=== PATIENT | male | born 1940 | race Caucasian/White ===

== ENCOUNTER → 2017-01-18 | Outpatient (CLI) | payer OTHER | END | disposition home or self-care (01) | LOC: PCVCCLINIC 15:41 | PROVIDERS: ATTEND Internal Medicine Cardiovascular Disease | DX: I25.10 Atherosclerotic heart disease of native coronary artery without angina pectoris (principal); E78.00 Pure hypercholesterolemia, unspecified; I10 Essential (primary) hypertension; J44.9 Chronic obstructive pulmonary disease, unspecified; I71.4 Abdominal aortic aneurysm, without rupture; I77.1 Stricture of artery; I73.9 Peripheral vascular disease, unspecified | CPT/HCPCS: 93005; G0463 ==

== ENCOUNTER → 2017-11-08 | Outpatient (CLI) | payer OTHER | END | disposition home or self-care (01) | LOC: PCVCCLINIC 10:31 | PROVIDERS: ATTEND Internal Medicine Cardiovascular Disease | DX: I25.10 Atherosclerotic heart disease of native coronary artery without angina pectoris (principal); I10 Essential (primary) hypertension; R06.02 Shortness of breath; R60.9 Edema, unspecified; J42 Unspecified chronic bronchitis; I71.4 Abdominal aortic aneurysm, without rupture; I77.9 Disorder of arteries and arterioles, unspecified; I73.9 Peripheral vascular disease, unspecified; R94.31 Abnormal electrocardiogram [ECG] [EKG]; R53.83 Other fatigue; Z87.891 Personal history of nicotine dependence; Z79.899 Other long term (current) drug therapy; Z79.82 Long term (current) use of aspirin | CPT/HCPCS: 80061; 93005; G0463 ==

== ENCOUNTER → 2017-11-14 | Outpatient (CLI) | payer OTHER ==
--- NOTE | 2017-11-09 14:07 | PCVCIMAG ---
APPROVED REPORT Study performed: 11/08/2017 10:47:31 EXAM: Comprehensive 2D, Doppler, and color-flow Echocardiogram Room #: 3 BSA: 2.15 HR: 61 bpmBP: 128/70 mmHg Rhythm: Junctional Other Information Study Quality: Adequate Risk Factors: Cardiac Risk Factors: HTN Indications Dyspnea CAD Fatigue Hypertension/HDD S/P stents x 6 2D Dimensions IVSd: 9.26 (7-11mm)LVOT Diam: 23.94 (18-24mm) LVDd: 45.18 mm PWd: 7.52 (7-11mm)Ascending Ao: 29.76 (22-36mm) LVDs: 23.67 (25-40mm) Left Atrium: 33.05 (27-40mm) Aortic Root: 20.88 mm LV Single Plane 4CH: 68.42 % LV Single Plane 2CH: 71.07 %Nazario's LVEF: 69.75 % Biplane EF: 69.0 % Volumes Left Atrial Volume (Systole) Single Plane 4CH: 76.24 mLSingle Plane 2CH: 60.17 mL Biplane LA Volume: 73.00 mLLA ESV Index: 34.00 mL/m2 Aortic Valve AoV Peak Carlos.: 1.56 m/s AO Peak Gr.: 9.71 mmHgLVOT Max P.01 mmHg LVOT Max V: 1.23 m/s MARIAM Vmax: 3.54 cm2 Mitral Valve E/A Ratio: 0.7 MV Decel. Time: 180.75 ms MV E Max Carlos.: 0.56 m/s MV A Carlos.: 0.80 m/s MV PHT: 52.42 ms IVRT: 89.97 ms TDI E/Lateral E': 8.00E/Medial E': 9.33 Medial E' Carlos.: 0.06 m/s Lateral E' Carlos.: 0.07 m/s Pulmonary Valve PV Peak Gr.: 5.35 mmHg Tricuspid Valve TR Peak Carlos.: 1.16 m/s TR Peak Gr.: 5.41 mmHg TV Vmax: 0.52 m/sPA Pressure: 13.00 mmHg Left Ventricle The left ventricle is normal size. There is normal LV segmental wall motion. There is normal left ventricular wall thickness. Left ventricular systolic function is normal. The left ventricular ejection fraction is within the normal range. LVEF is 65-70%. Grade I - abnormal relaxation pattern. Right Ventricle The right ventricle is normal size. The right ventricular systolic function is normal. Atria Left atrium is at the upper limits of normal. The right atrium size is normal. Aortic Valve The aortic valve is normal in structure. No aortic regurgitation is present. There is no aortic valvular stenosis. Mitral Valve The mitral valve is normal in structure. There is no mitral valve regurgitation noted. No evidence of mitral valve stenosis. Tricuspid Valve The tricuspid valve is normal in structure. Trace tricuspid regurgitation with a PA pressure of 13 mmHg. No pulmonary hypertension. Pulmonic Valve The pulmonary valve is normal in structure. Mild pulmonic regurgitation. Great Vessels The aortic root is normal in size. The ascending aorta is normal in size. IVC is normal in size and collapses with >50% inspiration Pericardium There is no pericardial effusion. There is no pleural effusion. <Conclusion> The left ventricle is normal size. There is normal left ventricular wall thickness. LVEF is 65-70%. Grade I - abnormal relaxation pattern. The right ventricle is normal size. Left atrium is at the upper limits of normal. The aortic valve is normal in structure. There is no mitral valve regurgitation noted. Trace tricuspid regurgitation with a PA pressure of 13 mmHg. No pulmonary hypertension. There is no pericardial effusion.
[~2017-11-14] MED LIST: DIAZEPAM 10 MG TABLET. ONE; EPINEPHrine 1 MG/ML VIAL ONE; HEPARIN for ARTERIAL LINE 1,500 ML ONE; IOHEXOL 300 MG/ML 100ML VIAL. ONE; IOHEXOL 350 MG/ML 100 ML VIAL. ONE; IV NORMAL SALINE 1000ML BAG 1,000 ML ONE; LIDOCAINE 1% Multi-Dose 20 ML VIAL. ONE; MIDAZOLAM HCL/PF 2 MG/2 ML VIAL. ONE; fentaNYL PF VIAL 100 MCG/2 ML VIAL ONE
--- NOTE | 2017-11-14 14:30 | PCVCINTER ---
EXAM: 1. AORTOGRAM AND BILATERAL LOWER EXTREMITY RUNOFF ANGIOGRAM 2. BILATERAL RENAL ANGIOGRAPHY INDICATION: Peripheral arterial disease. Coronary artery disease. Previous bilateral iliac stents. Bilateral leg pain. Hypertension. Renal atherosclerosis. PROCEDURE: Procedure and risks of angiography intervention is appropriate including limb loss stroke and were discussed with the patient's family and consent obtained. The patient's right groin was prepped abnormal sterile fashion. IV conscious sedation was used throughout procedure with appropriate monitoring from 10:45 AM through 11:45 AM. Ultrasound was used to interrogate the right groin and showed the right common femoral artery to be patent. A permanent spot film was obtained. Under ultrasound guidance access into the right common femoral artery was obtained and a 5 Spanish sheath was placed. Through this a 5 Spanish flush catheter was placed into the abdominal aorta at the level of the renal arteries and AP aortogram was performed. Catheter was positioned at the aortic bifurcation and both oblique views of the pelvis were obtained. Catheter was positioned into the right external iliac artery and right leg runoff angiography was performed. Catheter was exchanged for a visceral catheter was placed into the right renal arteries and right renal angiograms obtained. Catheter was placed into the the left renal arteries and left renal angiograms were obtained. Catheter was advanced to the level of the left external iliac artery and left leg runoff angiography was obtained.Catheters and wires removed. Dr. Sesay joined the procedure and he performed coronary angiography. Please see his separate dictation for full details. Sheath was removed and hemostasis obtained using the FISH device. No immediate complications. FINDINGS: Aortogram: There is one right and one left renal artery. Mild ectasia infrarenal abdominal aorta without significant stenosis. Pelvis: Previous right and left common iliac artery stents maintaining good patency. The right and left external iliac arteries are patent. Both internal iliac arteries are patent. The right and left common femoral and profunda femoral arteries are patent. Right renal artery: Minimal plaque proximal vessel does not cause significant stenosis. Left renal artery: Moderate irregular plaque proximal vessel causes only mild stenosis not felt to be flow-limiting. Right leg: The superficial femoral artery and popliteal arteries show good patency. Three-vessel runoff is widely patent with good flow into the foot. Left leg: The superficial femoral artery and popliteal arteries show good patency. Three-vessel runoff is widely patent with good flow into the foot. IMPRESSION: Previous bilateral common iliac artery stents maintaining good patency. Mild left renal artery stenosis less than 30%. No intrainguinal arterial stenosis seen. LOC:[id number]
--- NOTE | 2017-11-14 18:19 | PCVCINTER ---
APPROVED REPORT Patient Details Patient Status: Room #: 2 The patient is a 77 year-old Male Event Personnel Shama Kitchen MD, Luly Hernandez DO, Abdiel Reveles RN, Letty Dos Santos RT(R)(), Soo Bowers RT(R) Risk Factors Arterial HypertensionDysplipidemia (Type: 1)Obesity, Cerebrovascular DiseaseFamily HistoryPeripheral Vascular Disease, Chronic Lung DiseaseHypercholesterolemia, Last Creatanine 1.2Tobacco History (Former) Previous Procedures/Diagnoses CAD, COPD, Hypertension Procedure Narrative The patient was brought electively to the Cardiac Catheterization Laboratory and was prepped and draped in a sterile manner. The right femoral was infiltrated with 1% Lidocaine subcutaneous anesthesia. The right femoral accessed via ultrasound guidance. A Right Heart Catheterization was performed with a 7 Fr. [place]-Adelaida catheter and pressure were recorded. Cardiac outputs were obtained by the Lela and Thermal Dilution method. A 6F sheath was inserted into the right femoral artery. Coronary angiography was performed using coronary diagnostic catheters. The right coronary system was accessed and visualized with a JR4 catheter. The left coronary system was accessed and visualized with a JL4 catheter. The left ventricle was accessed and visualized with a Straight Pigtail catheter. Left ventriculogram was performed in WEAVER projection. Closure device was deployed with a 6F Fr Fish. Hemostasis was obtained with manual pressure following sheath removal without any complications. The patient tolerated the procedure well and there were no complications associated with the procedure. There was no hematoma. Hemodynamics The right atrial mean pressure is 10 mmHg. The right ventricular pressure is 15 mmHg. The pulmonary artery pressure is 36/16 mmHg with a mean of 25 mmHg. The mean pulmonary capillary wedge pressure is 21 mmHg. The aortic pressure is 132/56 mmHg with a mean of 86 mmHg. The left ventricular pressure is 120/3 mmHg with a mean of 14 mmHg. The cardiac output and index were assessed using Thermal. The cardiac output using thermo method is 5.11 L/min. The cardiac index using thermo method is 2.3 L/min/m2. Conclusion #1 normal left ventricular size and systolic function EF 60% #2 left main mild disease giving rise to LAD and circumflex #3 LAD proximal calcification extends around apex there is eccentric proximal long lesion of 50% with mild diffuse disease #4 circumflex OM with mild irregularities nondominant but moderate distribution. No occlusive disease #5 dominant right coronary with eccentric 30-40% mid vessel lesion giving rise to a PDA MEJIA diffusely diseased no occlusive disease #6 successful right heart catheterization as described above with mild pulmonary pressure elevation borderline to mild wedge pressure elevation Recommendations and plan continue aggressive risk factor modification continue diuresis restriction all fluid. No indication for intervention. No lifting for 48 hours no line tub Jacuzzi or Beckwith for a week.
== END | disposition home or self-care (01) ==
LOC: PCVCINTER 09:25
PROVIDERS: ATTEND Internal Medicine Cardiovascular Disease
DX: I70.213 Atherosclerosis of native arteries of extremities with intermittent claudication, bilateral legs (principal); I25.10 Atherosclerotic heart disease of native coronary artery without angina pectoris; I70.1 Atherosclerosis of renal artery; I10 Essential (primary) hypertension
CPT/HCPCS: 36246; 36252; 75716; 76937; 93306; 93460; 99152; 99153; C1751; C1760; C1769; C1894; J0171; J1644; J2250; J3010; J7030; Q9967

== ENCOUNTER → 2018-03-20 | Outpatient (CLI) | payer OTHER | END | disposition home or self-care (01) | LOC: PCVCCLINIC 13:50 | DX: I25.10 Atherosclerotic heart disease of native coronary artery without angina pectoris (principal); I77.9 Disorder of arteries and arterioles, unspecified; I71.4 Abdominal aortic aneurysm, without rupture; E78.00 Pure hypercholesterolemia, unspecified; I10 Essential (primary) hypertension; I73.9 Peripheral vascular disease, unspecified; Z87.891 Personal history of nicotine dependence; Z79.899 Other long term (current) drug therapy | CPT/HCPCS: 80061; 93005; G0463 ==

== ENCOUNTER → 2018-04-09 | Outpatient (CLI) | payer OTHER | END | disposition home or self-care (01) | LOC: PCVCIMAG 14:30 | DX: I65.23 Occlusion and stenosis of bilateral carotid arteries (principal); I73.9 Peripheral vascular disease, unspecified | CPT/HCPCS: 93880; 93931 ==

== ENCOUNTER → 2018-04-12 | Outpatient (CLI) | payer OTHER ==
[~2018-04-12] MED LIST changes: +DIAZEPAM 10 MG TABLET.; -DIAZEPAM 10 MG TABLET. ONE; -EPINEPHrine 1 MG/ML VIAL ONE; -HEPARIN for ARTERIAL LINE 1,500 ML ONE; +IOHEXOL 300 MG/ML 100ML VIAL.; -IOHEXOL 300 MG/ML 100ML VIAL. ONE; -IOHEXOL 350 MG/ML 100 ML VIAL. ONE; -IV NORMAL SALINE 1000ML BAG 1,000 ML ONE; +IV NORMAL SALINE 500ML BAG 500 ML; -LIDOCAINE 1% Multi-Dose 20 ML VIAL. ONE; +MIDAZOLAM HCL/PF 2 MG/2 ML VIAL.; -MIDAZOLAM HCL/PF 2 MG/2 ML VIAL. ONE; +fentaNYL PF VIAL 100 MCG/2 ML VIAL; -fentaNYL PF VIAL 100 MCG/2 ML VIAL ONE; +hydrALAZINE 20 MG/ML VIAL.
== END | disposition home or self-care (01) ==
LOC: PCVCINTER 09:32
DX: I65.22 Occlusion and stenosis of left carotid artery (principal); I10 Essential (primary) hypertension; I70.1 Atherosclerosis of renal artery
CPT/HCPCS: 36223; 36225; 36252; 75630; 76937; 99152; 99153; C1751; C1760; C1769; C1894; J0360; J1644; J2250; J3010; J7040; Q9967

== ENCOUNTER → 2018-10-04 | Outpatient (CLI) | payer OTHER | END | disposition home or self-care (01) | LOC: PCVCCLINIC 12:50 | PROVIDERS: ATTEND Internal Medicine Cardiovascular Disease | DX: I25.10 Atherosclerotic heart disease of native coronary artery without angina pectoris (principal); I73.9 Peripheral vascular disease, unspecified; I65.23 Occlusion and stenosis of bilateral carotid arteries; E78.00 Pure hypercholesterolemia, unspecified; J44.9 Chronic obstructive pulmonary disease, unspecified; K21.9 Gastro-esophageal reflux disease without esophagitis; Z79.899 Other long term (current) drug therapy; Z87.891 Personal history of nicotine dependence | CPT/HCPCS: 80061; 93005; G0463 ==

== ENCOUNTER → 2019-06-11 | Outpatient (CLI) | payer OTHER | END | disposition home or self-care (01) | LOC: PCVCCLINIC 15:30 | PROVIDERS: ATTEND Internal Medicine Cardiovascular Disease | DX: I10 Essential (primary) hypertension (principal); E78.5 Hyperlipidemia, unspecified; I25.10 Atherosclerotic heart disease of native coronary artery without angina pectoris; I65.23 Occlusion and stenosis of bilateral carotid arteries; I73.9 Peripheral vascular disease, unspecified; K21.9 Gastro-esophageal reflux disease without esophagitis; E78.00 Pure hypercholesterolemia, unspecified; J44.9 Chronic obstructive pulmonary disease, unspecified | CPT/HCPCS: 36415; 80061; 93005; G0463 ==